=== PATIENT | female | born 1950 | race Caucasian/White ===

== ENCOUNTER 2023-03-13 09:05 | Day surgery (SDC) | payer MEDICARE, OTHER ==
[2023-03-11 15:17] VITALS: BMI 27.3
[~2023-03-13 09:05] MED LIST: LACTATED RINGERS 1,000 ML IV SCH
[2023-03-13] MEDS ORDERED: PROPOFOL 10 MG/ML 20 ML VIAL IV ONE (09:54)
[2023-03-13 10:00] VITALS: RESP 16; TEMP 97
--- NOTE | 2023-03-13 10:14 | P.PCN ---
Date of Procedure: 03/13/23 Procedure(s) Performed: BRIEF HISTORY: Patient is a 72-year-old pleasant female scheduled for an elective colonoscopy as a part of evaluation of rectal bleeding 4 weeks ago. Patient was hospitalized at [facility] for 3 days but colonoscopy was Performed because she had covid infection. She was discharged home and the bleeding spontaneously resolved. Patient is status post sigmoid resection in now November 2020 for unresectable sigmoid polyp. PROCEDURE PERFORMED: Colonoscopy with biopsy. PREOPERATIVE DIAGNOSIS: History of colon polyps and rectal bleeding. IV sedation per Anesthesia. PROCEDURE: After informed consent was obtained, the patient, was brought into the endoscopy unit. IV sedation was administered by Anesthesia under continuous monitoring. Digital rectal examination was normal. Initially the Olympus CF-160 flexible video colonoscope was then inserted in the rectum, gradually advanced into the cecum without any difficulty. Careful examination was performed as the scope was gradually being withdrawn. Ileocecal valve and the appendiceal orifice were visualized and appeared normal. Prep was excellent. Mucosa of the cecum, ascending colon, transverse colon, descending colon appeared normal. Surgical anastomosis was located at 16 cm from the anal verge and advanced anastomosis there was a slightly raised submucosal area measuring about 3 cm with central ulceration and friable mucosa and multiple biopsies were done from this area. There was diffuse diverticula cyst noted throughout the entire colon. Retroflexion was performed in the rectum and no lesions were seen. The patient tolerated the procedure well. IMPRESSION: Anastomosis from previous sigmoid resection located at 16 cm from anal verge. 3 cm raised submucosal area at the proximal rectal anastomosis with central ulceration status post multiple biopsies Diffuse scattered diverticulosis RECOMMENDATIONS: Findings of this examination were discussed with the patient as well as a family. She was advised to follow with the biopsy result. She'll be seen in office in one week..
[2023-03-13 10:29] VITALS: BP 104/65; PULSE 51
== END 2023-03-13 10:47 | disposition home or self-care (01) ==
LOC: ORWHC2ENDO 09:05
PROVIDERS: ATTEND Internal Medicine Gastroenterology
DX: Z12.11 Encounter for screening for malignant neoplasm of colon (principal); K52.9 Noninfective gastroenteritis and colitis, unspecified; K62.5 Hemorrhage of anus and rectum; Z90.49 Acquired absence of other specified parts of digestive tract; K57.30 Diverticulosis of large intestine without perforation or abscess without bleeding; I25.2 Old myocardial infarction; I25.10 Atherosclerotic heart disease of native coronary artery without angina pectoris; I48.91 Unspecified atrial fibrillation; G47.33 Obstructive sleep apnea (adult) (pediatric); F41.9 Anxiety disorder, unspecified; I10 Essential (primary) hypertension; E78.5 Hyperlipidemia, unspecified; Z79.01 Long term (current) use of anticoagulants; Z79.82 Long term (current) use of aspirin; Z79.899 Other long term (current) drug therapy; Z95.1 Presence of aortocoronary bypass graft; Z98.890 Other specified postprocedural states; Z86.010 Personal history of colon polyps
CPT/HCPCS: 88305; 88342; 88341; 45380; J2704

== ENCOUNTER → 2023-03-27 | Outpatient (CLI) | payer MEDICARE, OTHER ==
[2023-03-27 12:18] LABS: African American GFR (CKD) >90 (>60 ml/min/1.73 sqM); Blood Urea Nitrogen 14 mg/dL (7-17); Non-African American GFR(CKD) 84 (>60 ml/min/1.73 sqM)
--- NOTE | 2023-03-27 14:38 | CT ---
EXAMINATION TYPE: CT abdomen pelvis w con DATE OF EXAM: 03/27/2023 COMPARISON: None available. HISTORY: Rectal bleeding. CT DLP: 1447 mGycm Automated exposure control for dose reduction was used. TECHNIQUE: Helical acquisition of images was performed from the lung bases through the pelvis. CONTRAST: Performed with Oral Contrast and with IV Contrast, patient injected with 100ml mL of Isovue 300. FINDINGS: LOWER CHEST : The visualized lung bases are clear. There are no pleural or pericardial effusions. ABDOMEN: Liver and Biliary system: There appears to be an area of enhancement within the right lobe of the li lenard which is likely vascular. No suspicious liver lesions are otherwise seen. Adrenal glands: Normal. Kidneys and ureters: There is a 2.7 cm cyst in the interpolar region of the left kidney. Probable exo phytic cyst in the interpolar region of the left kidney measuring approximately 1.7 cm in diameter. T here are additional subcentimeter hypodensities within the kidneys bilaterally that are too small to fully characterize. Spleen: Normal. Pancreas: Normal. Gallbladder: Multiple gallstones are seen within the gallbladder. Lymph nodes, Peritoneum and mesentery: There is no mesenteric or retroperitoneal lymphadenopathy. Gastrointestinal tract: There are no dilated loops of bowel or free intraperitoneal air. The appe ndix is normal. There is scattered moderate diffuse colonic diverticulosis without evidence of divert iculitis. Aorta/IVC: There is significant vascular calcification throughout the abdominal aorta without evide nce of aneurysmal dilation or dissection. IVC normal. Abdominal wall: Normal. PELVIS: Fluid: There is no free fluid in the pelvis. Lymph Nodes: There is no pelvic or inguinal lymphadenopathy.. Urinary bladder: Normal. BONES: There are no osseous destructive lesions.. ADDITIONAL SIGNIFICANT FINDINGS: None. IMPRESSION: 1. No acute process seen within the abdomen or pelvis. 2. Cholelithiasis. 3. Diverticulosis without evidence of diverticulitis. 4. Nonspecific area of enhancement within the right lobe liver is ill-defined and favored to be vascu lar, however would be better evaluated by MRI.
== END | disposition home or self-care (01) ==
LOC: RADCTMAIN 11:45
PROVIDERS: ATTEND Internal Medicine Gastroenterology
DX: K80.20 Calculus of gallbladder without cholecystitis without obstruction (principal); K62.5 Hemorrhage of anus and rectum; K57.30 Diverticulosis of large intestine without perforation or abscess without bleeding; K76.89 Other specified diseases of liver
CPT/HCPCS: 82565; 84520; 74177; 36415; Q9967